=== PATIENT | female | born 1935 | race Hispanic/Latino ===

== ENCOUNTER 2018-12-05 10:35 | Inpatient (IN) | payer OTHER, MEDICARE ==
[~2018-12-05] VITALS: Ht 152.4 cm; Wt 75.8 kg
[2018-12-05 11:14] LABS: BASOPHILS % (AUTO) 1.2 % (0.0-5.0); EOSINOPHILS % (AUTO) 2.9 % (0.0-8.0); HEMATOCRIT 34.5 % (36-48); LYMPHOCYTES % (AUTO) 34.2 % (21.0-51.0); MEAN CORPUSCULAR HEMOGLOBIN 31.5 pg (27.0-33.0); MEAN CORPUSCULAR HGB CONC 33.1 g/dL (32.0-36.0); MEAN CORPUSCULAR VOLUME 95.1 fL (79-99); NEUTROPHILS % (AUTO) 55.7 % (40.0-77.0); NUCLEATED RED BLOOD CELLS 0.1 % (0.0-0.19); PLATELET COUNT (AUTO) 130 K/uL (130-400); RED BLOOD CELL COUNT(AUTO) 3.63 MIL/uL (4.00-5.50); RED CELL DISTRIBUTION WIDTH 16.7 % (11.0-15.5); WHITE BLOOD COUNT (AUTO) 5.9 K/uL (4.8-10.8)
[2018-12-05 11:15] LABS: APPEARANCE,URINE Clear (CLEAR); BILIRUBIN,URINE Negative (NEGATIVE); COLOR,URINE Yellow (YELLOW); GLUCOSE, URINE (UA) Negative (NEGATIVE); KETONES,URINE Negative (NEGATIVE); LEUKOCYTE ESTERASE ,URINE Small (NEGATIVE); NITRATE,URINE Negative (NEGATIVE); OCCULT BLOOD,URINE Negative (NEGATIVE); PH,URINE 6.5 (5.0-8.0); PROTEIN,URINE Negative (NEGATIVE); UROBILINOGEN,URINE 0.2 mg/dL (0.2-1.0)
[2018-12-05 11:21] LABS: CREATININE 0.9 mg/dL (0.5-1.5); POTASSIUM 3.7 mmol/L (3.5-5.1)
[2018-12-05 11:26] LABS: ALBUMIN 3.9 g/dL (3.5-5.0); BILIRUBIN,TOTAL 0.3 mg/dL (0.2-1.0); TOTAL PROTEIN, SERUM 7.8 g/dL (6.0-8.3)
[2018-12-05 11:28] LABS: BACTERIA,URINE None Seen /HPF (None Seen); RBC,URINE 0-1 /HPF (0-1); SQUAMOUS EPITHELIAL CELL,UR Rare /HPF (0-2); WBC,URINE None Seen /HPF (0-1)
[2018-12-05 11:30] LABS: INR 0.99 (0.85-1.15); PARTIAL THROMBOPLASTIN TIME 26.3 SEC (26.3-35.5); PROTHROMBIN TIME 10.4 SEC (9.6-11.6)
[2018-12-05 11:48] LABS: B-TYPE NATRIURETIC PEPTIDE 176 pg/mL (0-100)
[2018-12-05] MEDS: ASPIRIN 325 MG TABLET PO SCH (15:51)
[2018-12-05] MEDS: ENOXAPARIN SODIUM 30 MG/0.3 ML SQ SCH (15:51)
[2018-12-05] MEDS ORDERED: ONDANSETRON HCL 4 MG/2 ML VIAL IVP PRN (16:00)
[2018-12-05] MEDS ORDERED: ACET650T9 PO (16:23)
[2018-12-05] MEDS ORDERED: ALEN70TA10 PO (16:23)
[2018-12-05] MEDS ORDERED: BENZ-51 PO (16:23)
[2018-12-05] MEDS ORDERED: DICL100G31 TP (16:23)
[2018-12-05] MEDS ORDERED: ACET-48 PO (16:23)
[2018-12-05] MEDS ORDERED: LEVO50TA11 PO (16:23)
[2018-12-05] MEDS ORDERED: LISI-613 PO (16:23)
[2018-12-05] MEDS ORDERED: IRON1CAP32 PO (16:23)
[2018-12-05] MEDS ORDERED: LORA10TA7 PO (16:23)
[2018-12-05] MEDS ORDERED: PREG75 PO (16:23)
[2018-12-05] MEDS ORDERED: ATOR40TA71 PO (16:23)
[2018-12-05] MEDS: INSULIN R PO SS1 SQ SCH ×2 (16:30→21:00)
[2018-12-05] MEDS ORDERED: ASPIRIN 325 MG TABLET ONE (21:14)
[2018-12-05] MEDS ORDERED: ENOXAPARIN SODIUM 30 MG/0.3 ML SQ ONE (21:15)
[2018-12-05 22:42] VITALS: BP 126/63
[2018-12-05 23:00] VITALS: BP 134/69
[2018-12-05] MEDS: ACETAMINOPHEN 325 MG TAB PO PRN (23:33)
[2018-12-06] MEDS ORDERED: BRIM5DRO OU (02:22)
[2018-12-06 03:00] VITALS: BP 109/57
[2018-12-06] MEDS: INSULIN R PO SS1 SQ SCH ×3 (05:59→16:30)
[2018-12-06 08:00] VITALS: BP 118/60
[2018-12-06] MEDS: ASPIRIN 325 MG TABLET PO SCH (09:04)
[2018-12-06] MEDS: ENOXAPARIN SODIUM 30 MG/0.3 ML SQ SCH (09:05)
[2018-12-06] MEDS: ACETAMINOPHEN 325 MG TAB PO PRN (09:08)
[2018-12-06 12:00] VITALS: BP 100/56
[2018-12-06 16:00] VITALS: BP 133/63
--- NOTE | 2018-12-06 18:01 | NUR ---
INITIAL: Met with pt and dtr Sumaya this afternoon to discuss dcp. Pt states that she lives w spouse. She is independent w ADLs and uses a cane for ambulation. She has provider services 3-4hr/day. She has a sh chair @ home. Pt states that she feels safe and comfortable to return home at ri. CM to continue to follow and wait for Md recommendations. Addendum: 12/06/18 at 1802 by NINO VALENZUELA Amended: Links added.
[2018-12-06 19:00] VITALS: BP 112/58
[2018-12-06 23:00] VITALS: BP 128/64
[2018-12-07 03:00] VITALS: BP 124/53
[2018-12-07 05:29] LABS: HEMATOCRIT 31.3 % (36-48); MEAN CORPUSCULAR HEMOGLOBIN 32.2 pg (27.0-33.0); MEAN CORPUSCULAR HGB CONC 34.2 g/dL (32.0-36.0); MEAN CORPUSCULAR VOLUME 94.1 fL (79-99); PLATELET COUNT (AUTO) 119 K/uL (130-400); RED BLOOD CELL COUNT(AUTO) 3.33 MIL/uL (4.00-5.50); RED CELL DISTRIBUTION WIDTH 16.8 % (11.0-15.5); WHITE BLOOD COUNT (AUTO) 5.7 K/uL (4.8-10.8)
[2018-12-07 05:43] LABS: CREATININE 0.9 mg/dL (0.5-1.5); POTASSIUM 3.8 mmol/L (3.5-5.1)
[2018-12-07 08:00] VITALS: BP 128/64
[2018-12-07] MEDS: ASPIRIN 325 MG TABLET PO SCH (10:03)
[2018-12-07] MEDS: ENOXAPARIN SODIUM 30 MG/0.3 ML SQ SCH (10:04)
[2018-12-07 12:00] VITALS: BP 127/66
[2018-12-07 16:00] VITALS: BP 143/69
[2018-12-07 20:00] VITALS: BP 133/66
[2018-12-07] MEDS ORDERED: LEVETIRACETAM 500 MG TABLET PO SCH (21:00)
[2018-12-08] VITALS: BP 123/67
[2018-12-08 04:00] VITALS: BP 112/61
[2018-12-08 08:00] VITALS: BP 111/57
--- NOTE | 2018-12-08 08:00 | NUR ---
AM SHIFT ASSESSMENT. SITTING IN CHAIR NOW. STATES FEELS OK
[2018-12-08] MEDS ORDERED: LEVETIRACETAM 250 MG TABLET PO SCH (09:00)
[2018-12-08] MEDS: ASPIRIN 325 MG TABLET PO SCH (09:35)
[2018-12-08] MEDS: ENOXAPARIN SODIUM 30 MG/0.3 ML SQ SCH (09:36)
--- NOTE | 2018-12-08 10:30 | NUR ---
DR. ROMERO IN TO SEE PT. INFORMED HIM EEG HAS NOT BEEN DONE YET HE TALKED TO PT. AND FAMILY AND GAVE THEM OPTION OF STAYING UNTIL AM OR HAVING IT DONE OUT PT.
[2018-12-08 12:00] VITALS: BP 114/75
--- NOTE | 2018-12-08 14:00 | NUR ---
PT, TO BE DISCHARGED AND WILL FOLLOW UP WITH PCP FOR REFERRAL TO SEE DR. ROMERO AND HAVE EEG DONE OUT PT.
[2018-12-08 16:00] VITALS: BP 122/64
[2018-12-08] MEDS ORDERED: LEVE500T8 PO (17:26)
[2018-12-08] MEDS ORDERED: LEVE250T PO (17:26)
--- NOTE | 2018-12-08 18:00 | NUR ---
DISCHARGED NOW USING TEACH BACK. RX FOR KEPPRA GIVEN AND ALSO CALLED IT IN TO [facility] WITH VERY SPECIFIC INST. HOW TO TAKE MEDICATION. WILL SEE DR. KAYE ON FRIDAY FOR REFERRAL
== END 2018-12-08 18:20 | disposition home or self-care (01) | DRG 101 ==
LOC: EDH 10:35 → EDHIP 14:45 → 3AH 22:27
PROVIDERS: ADMIT Internal Medicine Infectious Disease; ATTEND Internal Medicine Infectious Disease
DX: G40.909 Epilepsy, unspecified, not intractable, without status epilepticus (principal); R55 Syncope and collapse; I10 Essential (primary) hypertension; D64.9 Anemia, unspecified; E03.9 Hypothyroidism, unspecified; K74.60 Unspecified cirrhosis of liver
CPT/HCPCS: 36415; 70450; 70551; 80048; 80053; 81001; 82550; 82948; 83690; 83735; 83880; 84484; 85025; 85027; 85610; 85730; 87804; 93005; 97039; G0378; J1650

== ENCOUNTER 2020-06-25 11:04 | Emergency (ER) | payer MEDICARE ==
[~2020-06-25 11:04] MED LIST: ACET-49 PO; ACET650T9 PO; ALEN70TA69 PO; ATOR40TA71 PO; BENZ-51 PO; BRIM5DRO OU; DICL100G31 TP; IRON1CAP32 PO; LEVE-43 PO; LEVE250T PO; LEVO50TA11 PO; LISI-613 PO; LORA10TA7 PO; PREG75 PO
[2020-06-25 12:11] LABS: ALBUMIN 3.4 g/dL (3.5-5.0); BILIRUBIN,TOTAL 0.3 mg/dL (0.2-1.0); CREATININE 0.9 mg/dL (0.5-1.5); POTASSIUM 4.3 mmol/L (3.5-5.1); TOTAL PROTEIN, SERUM 6.8 g/dL (6.0-8.3)
[2020-06-25 12:14] LABS: INR 0.94 (0.85-1.15); PARTIAL THROMBOPLASTIN TIME 20.8 SEC (26.3-35.5); PROTHROMBIN TIME 10.2 SEC (9.6-11.6)
[2020-06-25 12:24] LABS: B-TYPE NATRIURETIC PEPTIDE 108 pg/mL (0-100)
[2020-06-25 12:26] LABS: BASOPHILS % (AUTO) 1.6 % (0.0-5.0); EOSINOPHILS % (AUTO) 1.3 % (0.0-8.0); HEMATOCRIT 30.2 % (36-48); LYMPHOCYTES % (AUTO) 21.3 % (21.0-51.0); MEAN CORPUSCULAR HEMOGLOBIN 36.1 pg (27.0-33.0); MEAN CORPUSCULAR HGB CONC 34.1 g/dL (32.0-36.0); MONOCYTES % (AUTO) 8.5 % (3.0-13.0); NEUTROPHILS % (AUTO) 66.8 % (40.0-77.0); PLATELET COUNT (AUTO) 136 K/uL (130-400); RED BLOOD CELL COUNT(AUTO) 2.85 MIL/uL (4.00-5.50); WHITE BLOOD COUNT (AUTO) 3.8 K/uL (4.8-10.8)
[2020-06-25] MEDS ORDERED: CEFTRIAXONE SODIUM 2 GM VIAL ONE (13:22)
[2020-06-25] MEDS ORDERED: SODIUM CHLORIDE 0.9% 1000ML 1,000 ML IV ONE (13:23)
[2020-06-25 14:13] LABS: APPEARANCE,URINE Clear (CLEAR); BILIRUBIN,URINE Negative (NEGATIVE); COLOR,URINE Yellow (YELLOW); GLUCOSE, URINE (UA) Negative (NEGATIVE); KETONES,URINE Negative (NEGATIVE); LEUKOCYTE ESTERASE ,URINE Moderate (NEGATIVE); NITRATE,URINE Positive (NEGATIVE); OCCULT BLOOD,URINE Negative (NEGATIVE); PH,URINE 7.5 (5.0-8.0); PROTEIN,URINE Negative (NEGATIVE); UROBILINOGEN,URINE 0.2 mg/dL (0.2-1.0)
[2020-06-25 14:54] LABS: RBC,URINE 0-1 /HPF (0-1)
[2020-06-25 14:55] LABS: BACTERIA,URINE Moderate /HPF (None Seen); MUCUS,URINE Rare LPF (None Seen); SQUAMOUS EPITHELIAL CELL,UR Rare /HPF (0-2)
== END 2020-06-25 14:51 | disposition left against medical advice (07) ==
LOC: EDH 11:04
DX: U07.1 COVID-19 (principal); J12.89 Other viral pneumonia; R55 Syncope and collapse; N39.0 Urinary tract infection, site not specified; E11.9 Type 2 diabetes mellitus without complications; I10 Essential (primary) hypertension; E07.9 Disorder of thyroid, unspecified
CPT/HCPCS: 36415; 70450; 71045; 80053; 81001; 82550; 83880; 84484; 85025; 85610; 85730; 87040 ×2; 87077; 87088; 87186; 87426; 93005; 96361; 96374; 99285; J0696; J7030; U0003